=== PATIENT | female | born 1960 | race Caucasian/White ===

== ENCOUNTER 2016-10-05 07:38 | Emergency (ER) | payer BC ==
[2016-10-05 07:56] VITALS: BP 148/72
--- NOTE | 2016-10-05 08:10 | UC ---
Throat Pain/Nasal Jimi HPI - HPI Summary HPI Summary: cough x 4 days, + nasal congestion , + body aches, no sore throat , no fever, - History of Current Complaint Chief Complaint: UCRespiratory Stated Complaint: COUGH,CONGESTION,ACHY Time Seen by Provider: 10/05/16 08:02 Hx Obtained From: Patient Hx Last Menstrual Period: years Onset/Duration: Gradual Onset, Lasting Days - 4, Still Present Severity: Moderate Cough: Nonproductive Associated Signs & Symptoms: Positive: Nasal Discharge. Negative: Wheezing, Hoarseness, Sinus Discomfort, Fever, Rash - Allergies/Home Medications Allergies/Adverse Reactions: Allergies Allergy/AdvReac Type Severity Reaction Status Date / Time Codeine Allergy Headache Verified 10/05/16 07:56 Erythromycin Allergy Unknown Verified 10/05/16 07:56 Reaction Details Amoxicillin [From Augmentin] AdvReac Vomiting Verified 10/05/16 07:56 Clavulanic Acid AdvReac Vomiting Verified 10/05/16 07:56 [From Augmentin] Home Medications: Home Medications [id number] [Nighttime Cold Flu & Reli 15-6.25-325 mg] 1 cap PO QPM 10/05/16 [History Confirmed 10/05/16] Ibuprofen Pm 1 tab PO QPM PRN 10/05/16 [History Confirmed 10/05/16] Melatonin 10 mg PO QPM PRN 10/05/16 [History Confirmed 10/05/16] PMH/Surg Hx/FS Hx/Imm Hx Endocrine History Of: Reports: Dyslipidemia Denies: Diabetes, Thyroid Disease, Hyperthyroidism, Hypothyroidism Cardiovascular History Of: Denies: Cardiac Disorders, Hypertension, Pacemaker/ICD, Myocardial Infarction , Congestive Heart Failure, Atrial Fibrillation, Deep Vein Thrombosis, Bleeding Disorders Respiratory History Of: Denies: COPD, Asthma, Bronchitis, Pneumonia, Pulmonary Embolism GI/ History Of: Reports: Ulcer Denies: Gastroesophageal Reflux, Gastrointestinal Bleed, Gall Bladder Disease , Kidney Stones, Diverticulitis, Renal Disease, Urosepsis Neurological History Of: Denies: TIA, CVA, Dementia, Seizures, Migraine Psychological History Of: Denies: Anxiety, Depression, Bipolar Disorder, Schizophrenia, Post Traumatic Stress Disorder Cancer History Of: Denies: Lung Cancer, Colorectal Cancer, Breast Cancer, Prostate Cancer, Cervical Cancer Other History Of: Negative For: HIV, Hepatitis B, Hepatitis C, Anticoagulant Therapy - Surgical History Surgical History: Yes Surgery Procedure, Year, and Place: Bladder surgery, Appendectomy, - Family History Known Family History: Positive: None, Cardiac Disease - father, Hypertension - Social History Alcohol Use: None Substance Use Type: None Smoking Status (MU): Former Smoker When Did the Patient Quit Smoking/Using Tobacco: 30 years ago - Immunization History Most Recent Influenza Vaccination: no this season Most Recent Tetanus Shot: UNKNOWN Review of Systems Constitutional: Chills, Fatigue Skin: Negative Eyes: Negative ENT: Nasal Discharge Respiratory: Cough Cardiovascular: Negative Gastrointestinal: Negative All Other Systems Reviewed And Are Negative: Yes Physical Exam Triage Information Reviewed: Yes Appearance: Well-Appearing, No Pain Distress, Well-Nourished Vital Signs: Initial Vital Signs Temp 97.7 F 10/05/16 07:49 Pulse 77 10/05/16 07:49 Resp 20 10/05/16 07:49 BP 148/72 10/05/16 07:49 Pulse Ox 98 10/05/16 07:49 Vital Signs Reviewed: Yes Eyes: Positive: Conjunctiva Clear ENT: Positive: Normal ENT inspection, Hearing grossly normal, Pharyngeal erythema, Nasal congestion, Nasal drainage, TMs normal Neck: Positive: Supple, Nontender, No Lymphadenopathy Respiratory: Positive: Chest non-tender, Lungs clear, Normal breath sounds Cardiovascular: Positive: RRR, No Murmur, Pulses Normal Skin Exam: Normal Throat Pain/Nasal Course/Dx - Differential Dx/Diagnosis Provider Diagnoses: uri Discharge - Discharge Plan Condition: Stable Disposition: HOME Patient Education Materials: Upper Respiratory Infection (ED) Forms: *Work Release Referrals: Joe Alexander [Primary Care Provider] - If Needed
== END 2016-10-05 08:19 | disposition home or self-care (01) ==
LOC: UCCORT 07:38
DX: J06.9 Acute upper respiratory infection, unspecified (principal); Z87.891 Personal history of nicotine dependence; Z88.1 Allergy status to other antibiotic agents; Z88.5 Allergy status to narcotic agent
CPT/HCPCS: 99211; G0463

== ENCOUNTER 2017-05-27 16:15 | Emergency (ER) | payer BC ==
--- NOTE | 2017-05-27 16:23 | UC ---
Respiratory Complaint HPI - HPI Summary HPI Summary: 56 YEAR OLD FEMALE PRESENTS WITH COMPLAINS OF SEVERE SHORTNESS OF BREATH AND RIGHT SIDED NECK PAIN. I WILL SEND HER TO THE ER. - History of Current Complaint Stated Complaint: SOB, NECK PAIN Time Seen by Provider: 05/27/17 16:22 Hx Obtained From: Patient Hx Last Menstrual Period: years Onset/Duration: Sudden Onset Timing: Constant Severity Initially: Moderate Severity Currently: Moderate Pain Scale Used: 0-10 Numeric - 7 Aggravating Factors: Deep Breaths - Allergies/Home Medications Allergies/Adverse Reactions: Allergies Allergy/AdvReac Type Severity Reaction Status Date / Time Codeine Allergy Headache Verified 05/27/17 16:36 Erythromycin Allergy Unknown Verified 05/27/17 16:36 Reaction Details Amoxicillin [From Augmentin] AdvReac Vomiting Verified 05/27/17 16:36 Clavulanic Acid AdvReac Vomiting Verified 05/27/17 16:36 [From Augmentin] Home Medications: Home Medications Ibuprofen TAB* [Motrin TAB* 800 MG] 800 mg PO Q6H PRN 05/27/17 [History Confirmed 05/27/17] PMH/Surg Hx/FS Hx/Imm Hx Previously Healthy: Yes Other History Of: Negative For: HIV, Hepatitis B, Hepatitis C, Anticoagulant Therapy - Surgical History Surgical History: Yes Surgery Procedure, Year, and Place: Bladder surgery, Appendectomy, - Family History Known Family History: Positive: None, Cardiac Disease - father, Hypertension - Social History Alcohol Use: None Substance Use Type: None Smoking Status (MU): Former Smoker When Did the Patient Quit Smoking/Using Tobacco: 30 years ago - Immunization History Most Recent Influenza Vaccination: no this season Most Recent Tetanus Shot: UNKNOWN Review of Systems Constitutional: Negative Skin: Negative Eyes: Negative ENT: Negative Respiratory: Shortness Of Breath Cardiovascular: Negative Gastrointestinal: Negative Genitourinary: Negative Motor: Negative Neurovascular: Negative Musculoskeletal: Negative Neurological: Negative Psychological: Negative All Other Systems Reviewed And Are Negative: Yes Physical Exam Triage Information Reviewed: Yes Eye Exam: Normal ENT Exam: Normal Dental Exam: Normal Neck exam: Normal Neck: Positive: 1 Respiratory: Positive: Respiratory distress Cardiovascular Exam: Normal Abdominal Exam: Normal Musculoskeletal Exam: Normal Neurological Exam: Normal Psychological Exam: Normal Skin Exam: Normal Respiratory Course/Dx - Differential Dx/Diagnosis Provider Diagnoses: NECK PAIN. SEVERE SHORTNESS OF BREATH Discharge - Discharge Plan Condition: Guarded Disposition: AGAINST MEDICAL ADVICE Patient Education Materials: Dyspnea (ED) Referrals: Joe Alexander [Primary Care Provider] - Additional Instructions: PATIENT TOLD TO GO TO ER FOR SHORTNESS OF BREATH BY JASON BUT WILL SIGN OUT AMA AND DRIVE TO THE ER.
[2017-05-27 16:36] VITALS: BP 142/72
== END 2017-05-27 16:50 | disposition left against medical advice (07) ==
LOC: UCCORT 16:15
DX: M54.2 Cervicalgia (principal); R06.02 Shortness of breath; Z88.1 Allergy status to other antibiotic agents; Z88.5 Allergy status to narcotic agent; Z87.891 Personal history of nicotine dependence
CPT/HCPCS: 93005; 99212; G0463

== ENCOUNTER 2017-10-26 17:53 | Emergency (ER) | payer BC ==
[2017-10-26 18:23] VITALS: BP 128/55
--- NOTE | 2017-10-26 18:45 | UC ---
Abdominal Pain Female HPI - HPI Summary HPI Summary: 3 DAYS CRAMPY LLQ PAIN AND LOOSE STOOLS WITH STREAKS OF BLOOD AND MUCUS. NO NAUSEA. NO FEVER. DECREASED APPETITE. - History of Current Complaint Chief Complaint: UCAbdominalPain Stated Complaint: ABDOMINAL PAIN Time Seen by Provider: 10/26/17 18:35 Hx Obtained From: Patient Hx Last Menstrual Period: years Onset/Duration: Sudden Onset, Lasting Days, Still Present Severity Initially: Moderate Severity Currently: Moderate Pain Intensity: 6 Pain Scale Used: 0-10 Numeric Location: Discrete At: LLQ Radiates: No Character: Cramping, Sharp Aggravating Factor(s): Nothing Alleviating Factor(s): Nothing Associated Signs and Symptoms: Positive: Constipation, Blood in Stool, Decreased Appetite, Diarrhea. Negative: Fever, Chest Pain, Dizzy, Urinary Symptoms, Vaginal Bleeding, Vaginal Discharge, Nausea, Vomiting Allergies/Adverse Reactions: Allergies Allergy/AdvReac Type Severity Reaction Status Date / Time MS Codeine [Codeine] Allergy Headache Verified 10/26/17 18:23 MS Erythromycin Allergy Unknown Verified 10/26/17 18:23 [Erythromycin] Reaction Details MS Amoxicillin AdvReac Vomiting Verified 10/26/17 18:23 [From Augmentin] MS Clavulanic Acid AdvReac Vomiting Verified 10/26/17 18:23 [From Augmentin] PMH/Surg Hx/FS Hx/Imm Hx Previously Healthy: Yes Other History Of: Negative For: HIV, Hepatitis B, Hepatitis C, Anticoagulant Therapy - Surgical History Surgical History: Yes Surgery Procedure, Year, and Place: Bladder surgery, Appendectomy, - Family History Known Family History: Positive: Cardiac Disease - father Negative: Hypertension - Social History Alcohol Use: None Substance Use Type: None Smoking Status (MU): Former Smoker When Did the Patient Quit Smoking/Using Tobacco: 30 years ago - Immunization History Most Recent Influenza Vaccination: no this season Most Recent Tetanus Shot: UNKNOWN Review of Systems Constitutional: Negative Respiratory: Negative Cardiovascular: Negative Gastrointestinal: Abdominal Pain, Diarrhea Genitourinary: Negative All Other Systems Reviewed And Are Negative: Yes Physical Exam Triage Information Reviewed: Yes Appearance: Well-Nourished, Pain Distress - MOD Vital Signs: Initial Vital Signs Temp 98.8 F 10/26/17 18:17 Pulse 59 10/26/17 18:17 Resp 16 10/26/17 18:17 BP 128/55 10/26/17 18:17 Pulse Ox 100 10/26/17 18:17 Vital Signs Reviewed: Yes Eyes: Positive: Conjunctiva Clear ENT: Positive: Hearing grossly normal, Pharynx normal, TMs normal Neck: Positive: Supple, Nontender, No Lymphadenopathy Respiratory Exam: Normal Cardiovascular Exam: Normal Abdomen Description: Positive: Soft, Distended, Other: - PAIN WITH PALPATION AND PERCUSSION OVER LLQ.. Negative: Guarding Bowel Sounds: Positive: Present Musculoskeletal: Positive: No Edema Neurological: Positive: Alert Psychological: Positive: Age Appropriate Behavior Skin: Negative: rashes Abd Pain Female Course/Dx - Course Course Of Treatment: PT OFFERED TRANSPORT BY AMBULANCE BUT DECLINES. ADVISED THAT BY NOT TRAVELING IN A MONITORED SETTING SHE COULD BE RISKING WORSENING OF HER CONDITION THAT COULD POSE A THREAT TO HER LIFE, HEALTH AND MEDICAL SAFETY. SHE VERBALIZES UNDERSTANDING AND CONTINUES TO DECLINE AMBULANCE TRANSFER. - Differential Dx/Diagnosis Provider Diagnoses: LLQ PAIN Discharge - Discharge Plan Condition: Stable Disposition: OTHER Discharge Disposition Comment: TO [facility] ED BY PRIVATE CAR Patient Education Materials: Abdominal Pain (ED) Referrals: Joe Alexander [Primary Care Provider] - If Needed Additional Instructions: CONCERN FOR DIVERTICULITIS. RECOMMEND YOU GO DIRECTLY TO THE [facility] ED FROM HERE FOR FURTHER EVALUATION. YOU HAVE DECLINED AMBULANCE TRANSFER. BE ADVISED THAT BY NOT TRAVELING IN A MONITORED SETTING YOU COULD BE RISKING WORSENING OF YOUR CONDITION THAT COULD POSE A THREAT TO YOUR LIFE, HEALTH AND MEDICAL SAFETY.
== END 2017-10-26 18:51 ==
LOC: UCCORT 17:53
DX: R10.32 Left lower quadrant pain (principal); Z88.1 Allergy status to other antibiotic agents; Z88.5 Allergy status to narcotic agent; Z88.0 Allergy status to penicillin; Z87.891 Personal history of nicotine dependence
CPT/HCPCS: 99212; G0463

== ENCOUNTER 2018-01-06 10:53 | Emergency (ER) | payer BC, OTHER ==
[2018-01-06 12:00] VITALS: BP 139/75
[2018-01-06] MEDS ORDERED: Ketorolac INJ* 30 MG/ML 1 ML VIAL IM ONE (12:13)
--- NOTE | 2018-01-06 12:55 | RAD ---
Indication: Left leg injury. 2 views of left leg demonstrates no fracture. No other bone or joint abnormality is noted. IMPRESSION: No fracture of the left leg is noted.
--- NOTE | 2018-01-06 13:01 | RAD ---
INDICATION: Right rib injury. COMPARISON: There are no prior studies available for comparison. TECHNIQUE: 3 views of the right ribs and dual-energy PA views of the chest were obtained. FINDINGS: There is a small area of cortical irregularity in the lateral right eighth rib possibly representing a nondisplaced fracture. The lungs are underinflated and clear. No pleural effusion or pneumothorax is seen. IMPRESSION: POSSIBLE NONDISPLACED FRACTURE OF THE RIGHT LATERAL EIGHTH RIB.
--- NOTE | 2018-01-06 13:29 | UC ---
Minor Trauma HPI - HPI Summary HPI Summary: 57 yo female fell on step at work when she tried to pick something up right lateral CP and multiple bruises no LOC no neck pain no abd pain - History of Current Complaint Chief Complaint: UCUpperExtremity Stated Complaint: RT SIDED PAIN S/P FALL, HIT HEAD -W/C Time Seen by Provider: 01/06/18 11:43 Hx Obtained From: Patient Hx Last Menstrual Period: years Onset/Duration: Sudden Onset, Lasting Hours Onset Of Pain: Immediate Severity Initially: Moderate Severity Currently: Severe Pain Intensity: 10 Pain Scale Used: 0-10 Numeric Mechanism Of Injury: Fall From Height Of: - 1 foot Aggravating Factor(s): Ambulation, Movement, Weight Bearing Alleviating Factor(s): OTC Meds Associated Signs And Symptoms: Positive: Ecchymosis Related History: Positive: Occupational Injury Body - Head: 1 - contusion 2 - contuison 3 - contusion 4 - tenderness/antalgic gait 5 - tender - Allergies/Home Medications Allergies/Adverse Reactions: Allergies Allergy/AdvReac Type Severity Reaction Status Date / Time amoxicillin [From Augmentin] Allergy Vomiting Verified 01/06/18 11:50 clavulanic acid Allergy Vomiting Verified 01/06/18 11:50 [From Augmentin] codeine Allergy Headache Verified 01/06/18 11:50 erythromycin base Allergy Altered Verified 01/06/18 11:50 Mental Status Home Medications: Home Medications Aspirin 81 mg CHEW TAB* [Aspirin Low Dose TAB*] 81 mg PO BID 01/06/18 [History Confirmed 01/06/18] traMADol TAB* [Ultram*] 50 mg PO Q6HR PRN 01/06/18 [History Confirmed 01/06/18] PMH/Surg Hx/FS Hx/Imm Hx Previously Healthy: Yes Other History Of: Negative For: HIV, Hepatitis B, Hepatitis C, Anticoagulant Therapy - Surgical History Surgical History: Yes Surgery Procedure, Year, and Place: Bladder surgery, Appendectomy, - Family History Known Family History: Positive: Cardiac Disease - father, Hypertension - Social History Alcohol Use: None Substance Use Type: None Smoking Status (MU): Former Smoker When Did the Patient Quit Smoking/Using Tobacco: 35 years ago - Immunization History Most Recent Influenza Vaccination: no this season Most Recent Tetanus Shot: UNKNOWN Review of Systems Constitutional: Negative Skin: Bruising Eyes: Negative ENT: Negative Respiratory: Negative Cardiovascular: Chest Pain Gastrointestinal: Negative Genitourinary: Negative Motor: Negative Neurovascular: Negative Musculoskeletal: Negative Neurological: Headache Psychological: Negative Is Patient Immunocompromised?: No All Other Systems Reviewed And Are Negative: Yes Physical Exam Triage Information Reviewed: Yes Appearance: Well-Appearing, No Pain Distress, Well-Nourished Vital Signs: Initial Vital Signs Temp 97.8 F 01/06/18 11:53 Pulse 64 01/06/18 11:53 Resp 20 01/06/18 11:53 BP 139/75 01/06/18 11:53 Pulse Ox 98 01/06/18 11:53 Eyes: Positive: Conjunctiva Clear, Other: - eomi/perrl ENT: Positive: Hearing grossly normal. Negative: Nasal congestion, Nasal drainage, Tonsillar exudate, Trismus, Hoarse voice Neck: Positive: Supple, Nontender, No Lymphadenopathy Respiratory: Positive: Lungs clear, Normal breath sounds, No respiratory distress. Negative: Chest non-tender Cardiovascular: Positive: RRR, No Murmur Musculoskeletal: Positive: ROM Intact, No Edema Neurological: Positive: Alert Psychological Exam: Normal Diagnostics - Radiology No standard instances Xray Interpretation: Positive (See Comments) - IMPRESSION: POSSIBLE NONDISPLACED FRACTURE OF THE RIGHT LATERAL EIGHTH RIB. Radiology Interpretation Completed By: Radiologist Minor Trauma Course/Dx - Differential Dx/Diagnosis Provider Diagnoses: right 8th rib fracture. multiple contusions Discharge - Sign-Out/Discharge Documenting (check all that apply): Discharge/Admit/Transfer - Discharge Plan Condition: Stable Disposition: HOME Prescriptions: traMADol TAB* [Ultram*] 50 mg PO Q6HR PRN #20 tab MDD 4 PRN Reason: Pain Patient Education Materials: Rib Fracture (ED), Contusion in Adults (ED) Forms: *Work Release Referrals: Vibha Tran MD [Primary Care Provider] - Additional Instructions: advil or aleve recheck for worsening symptoms recheck here in one week - Billing Disposition and Condition Condition: STABLE Disposition: HOME
== END 2018-01-06 13:34 | disposition home or self-care (01) ==
LOC: UCCORT 10:53
DX: S22.31XA Fracture of one rib, right side, initial encounter for closed fracture (principal); W10.9XXA Fall (on) (from) unspecified stairs and steps, initial encounter; Y93.9 Activity, unspecified; Y92.9 Unspecified place or not applicable; Y99.0 Civilian activity done for income or pay; Z87.891 Personal history of nicotine dependence
CPT/HCPCS: 96372; 99212; G0463; J1885